=== PATIENT | female | born 1935 | race Caucasian/White ===

== ENCOUNTER 2018-11-06 05:12 | Emergency (ER) | payer MEDICARE, MEDICAID ==
[~2018-11-06] VITALS: Ht 154.9 cm; Wt 61.2 kg
[~2018-11-06 05:12] MED LIST: ALEN10TA6 PO; AMLO5TAB4 PO; DOCU-144 PO; DONE5TAB3 PO; GABA-529 PO; PREG75CA PO; SIMV10TA2 PO; ZOLP5TAB2 PO
[2018-11-06 05:15] VITALS: BP_SYST 154
[2018-11-06] MEDS ORDERED: BACLOFEN 10 MG TABLET PO ONE (05:45)
[2018-11-06] MEDS: ACETAMINOPHEN/CODEINE 300 MG-30 MG TABLET PO ONE (05:48)
[2018-11-06 08:08] VITALS: BP_SYST 154
== END 2018-11-06 08:08 | disposition home or self-care (01) ==
LOC: SED 05:12
DX: S39.012A Strain of muscle, fascia and tendon of lower back, initial encounter (principal); E78.5 Hyperlipidemia, unspecified; F03.90 Unspecified dementia, unspecified severity, without behavioral disturbance, psychotic disturbance, mood disturbance, and anxiety; I10 Essential (primary) hypertension; Z86.79 Personal history of other diseases of the circulatory system; Z79.899 Other long term (current) drug therapy; X50.9XXA Other and unspecified overexertion or strenuous movements or postures, initial encounter; Y93.89 Activity, other specified; Y92.89 Other specified places as the place of occurrence of the external cause; Y99.8 Other external cause status
CPT/HCPCS: 72125-TC; 99284

== ENCOUNTER 2019-08-10 18:30 | Emergency (ER) | payer MEDICARE, MEDICAID ==
[~2019-08-10] VITALS: Ht 154.9 cm; Wt 49.9 kg
[2019-08-10 18:30] VITALS: BP_SYST 194
[~2019-08-10 18:30] MED LIST changes: -ALEN10TA6 PO; +ALEN10TA7 PO
[2019-08-10] MEDS ORDERED: IBUPROFEN 400 MG TABLET PO ONE (19:15)
[2019-08-10] MEDS ORDERED: CYCLOBENZAPRINE HCL 10 MG TABLET (FLEXERIL) PO ONE (19:15)
[2019-08-10] MEDS ORDERED: KETOROLAC TROMETHAMINE 60 MG/2 ML VIAL IM ONE (20:00)
[2019-08-10 21:45] VITALS: BP_SYST 178
== END 2019-08-10 20:45 | disposition home or self-care (01) ==
LOC: SED 18:30
DX: S13.9XXA Sprain of joints and ligaments of unspecified parts of neck, initial encounter (principal); E78.5 Hyperlipidemia, unspecified; F03.90 Unspecified dementia, unspecified severity, without behavioral disturbance, psychotic disturbance, mood disturbance, and anxiety; I10 Essential (primary) hypertension; Z79.899 Other long term (current) drug therapy; X58.XXXA Exposure to other specified factors, initial encounter; Y93.89 Activity, other specified; Y92.89 Other specified places as the place of occurrence of the external cause; Y99.8 Other external cause status
CPT/HCPCS: 96372; 99283; J1885

== ENCOUNTER 2019-11-03 03:50 | Inpatient (IN) | payer MEDICAID, MEDICARE ==
[~2019-11-03] VITALS: Ht 157.5 cm; Wt 49.0 kg
[2019-11-03 04:18] VITALS: BP_SYST 187
[2019-11-03] MEDS ORDERED: TRAZ-250 PO (04:43)
[2019-11-03] MEDS ORDERED: CALC1POW43 PO (04:44)
[2019-11-03] MEDS ORDERED: ERGO500020 PO (04:45)
--- NOTE | 2019-11-03 04:50 | NUR ---
Patient to ER bed 3 to gown for evaluation. Side rails up.
--- NOTE | 2019-11-03 05:00 | NUR ---
Pt brought in by family, AAOX4 maltese speaking with a complaint of abdominal pain and history of alzeimers, HTN, CVA. No other complaint noted. Safety precaution observed. Will continue to monitor Pt.
--- NOTE | 2019-11-03 05:01 | NUR ---
ER at bedside examining patient.
[2019-11-03 05:42] LABS: BASOPHILS % (AUTO) 0.7 % (0.0-2.0); EOSINOPHILS % (AUTO) 0.4 % (0.0-4.0); HEMATOCRIT 45.2 % (36-48); HEMOGLOBIN 15.2 g/dL (12.0-16.0); LYMPHOCYTES # (AUTO) 0.5 K/uL (1.0-5.5); LYMPHOCYTES % (AUTO) 7.4 % (20.5-51.5); MEAN CORPUSCULAR HEMOGLOBIN 31 pg (27-31); MEAN CORPUSCULAR HGB CONC 34 % (32-36); MEAN CORPUSCULAR VOLUME 92 fL (79.0-98.0); MONOCYTES # (AUTO) 0.4 K/uL (0.0-1.0); MONOCYTES % (AUTO) 5.3 % (1.7-9.3); NEUTROPHILS # (AUTO) 5.8 K/uL (1.8-7.7); NEUTROPHILS % (AUTO) 86.2 % (40.0-70.0); PLATELET COUNT (AUTO) 145 K/uL (130-430); RED BLOOD CELL COUNT(AUTO) 4.92 MIL/uL (4.2-6.2); RED CELL DISTRIBUTION WIDTH 14.2 % (9.0-15.0); WHITE BLOOD COUNT (AUTO) 6.7 K/uL (4.8-10.8)
[2019-11-03] MEDS ORDERED: MORPHINE 2 MG/ML INJ. SYRINGE IVP ONE (05:45)
[2019-11-03] MEDS ORDERED: ONDANSETRON HCL 4 MG/2 ML VIAL IVP ONE ×2 (05:45→16:15)
[2019-11-03 05:58] LABS: ANION GAP 13 (5-15); CALCIUM 8.4 mg/dL (8.4-11.0); CHLORIDE 101 mmol/L (98-107); CREATININE 0.72 mg/dL (0.55-1.30); GLUCOSE 117 mg/dL (70-99); POTASSIUM 3.4 mmol/L (3.5-5.1); SODIUM SERUM 136 mmol/L (136-145); UREA NITROGEN, BLOOD 17 mg/dL (8-21)
[2019-11-03 06:04] LABS: ALANINE AMINOTRANSFERASE 15 U/L (12-78); ALBUMIN 4.1 g/dL (3.4-4.8); ASPARTATE AMINOTRANSFERASE 18 U/L (10-37); TOTAL BILIRUBIN 0.8 mg/dL (0.0-1.0)
[2019-11-03] MEDS ORDERED: metroNIDAZOLE 500 mg/NS 100 ML IV ONE (06:15)
--- NOTE | 2019-11-03 06:32 | NUR ---
Admission Note Received patient from ER with diagnosis of SBO. Initial Plan of Care discussed-patient verbalized understanding. Oriented to room, call light, pain management and safety.
[2019-11-03 06:40] LABS: PROTHROMBIN TIME 9.9 SECS (9.5-12.5)
--- NOTE | 2019-11-03 06:40 | NUR ---
Patient will be admitted to care of Dr. Coleman. Admitted to telemetry unit. Will go to room 124. Belongings list completed. Complete and up to date summary report printed. SBAR report to be given at bedside with opportunity for questions.
[2019-11-03] MEDS ORDERED: ONDANSETRON HCL 4 MG/2 ML VIAL IVP PRN ×2 (06:45→17:15)
[2019-11-03 06:49] VITALS: BP_SYST 151
--- NOTE | 2019-11-03 07:30 | NUR ---
INITIAL NOTE PT AWAKE, ASSISTED TO RESTROOM, PT AMBULATES WITH STEADY GAIT. DENIES ANY ABDOMINAL PAIN, OR NAUSEA. ASSISTED BACK TO BED. CALL LIGHT WITHIN REACH, BED IN LOW AND LOCKED POSITION WITH BED ALARM ON.
--- NOTE | 2019-11-03 07:47 | NUR ---
CONSULTATION PAGED/CALLED Reason for Consultation: [] SMALL BOWEL OBSTRUCTION Person Who was Notified: [] HUMZA Consulting Physician: [] DR BARRAGAN Food Tester Specialty: [] GEN SURGEON Ordering Physician: [] DR CORONA
[2019-11-03] MEDS: MORPHINE 2 MG/ML INJ. SYRINGE IVP PRN ×2 (08:53→19:22)
--- NOTE | 2019-11-03 09:30 | NUR ---
RN ROUNDS/DR. LUIS MANUEL ELIZABETH AT BEDSIDE EXAMINING PT. PT AWAKE, ABLE TO ANSWER MD QUESTIONS. MD TO PUT NEW ORDERS.
[2019-11-03] MEDS ORDERED: PIPERACILLIN/TAZO 2.25G/DEX-IS 50 ML IV ONE (11:00)
--- NOTE | 2019-11-03 11:14 | NUR ---
CONSULTATION PAGED/CALLED Reason for Consultation: [] CARDIAC CLEARANCE Person Who was Notified: [] EVA Consulting Physician: [] DR FREEMAN Granular Operator Specialty: [] CARDIOLOGY Ordering Physician: [] DR CORONA
--- NOTE | 2019-11-03 11:18 | NUR ---
CONSULTATION PAGED/CALLED Reason for Consultation: [] ABDOMINAL PAIN Person Who was Notified: [] HUMZA Consulting Physician: [] DR ISSA, PASSENGER SCREENER FOR DR APONTE Forestry Fire Aide Specialty: [] GI Ordering Physician: [] DR CORONA
[2019-11-03] MEDS: D5LR 1,000 ML IV SCH ×2 (11:23→20:00)
[2019-11-03] MEDS ORDERED: POTASSIUM CHLORIDE 40 MEQ, LIDOCAINE JECT 2% PF 100 MG 50 MG in NS 250 ML IV ONE (11:30)
--- NOTE | 2019-11-03 11:30 | NUR ---
DR. LUIS MANUEL ELIZABETH AT BEDSIDE EXAMINING PT. TO PUT IN NEW ORDERS.
--- NOTE | 2019-11-03 11:30 | NUR ---
RN ROUNDS PT RESTING IN BED, PAIN CONTROLLED AT THIS TIME, WILL CONTINUE TO MONITOR.
[2019-11-03 12:09] VITALS: BP_SYST 142
[2019-11-03] MEDS ORDERED: POLYETHYLENE GLYCOL 3350, 17 GM/ POWD.PACK PO ONE (12:30)
--- NOTE | 2019-11-03 13:30 | NUR ---
RN KERWIN/DR. CHLOE ELIZABETH AT BED SIDE EXAMINING PT. PT ABLE TO ANSWER ALL MD QUESTION. MD TO PUT IN NEW ORDERS.
--- NOTE | 2019-11-03 14:40 | NUR ---
DR. LAUREL ELIZABETH AT BEDSIDE EXAMINING PT. TO PUT IN NEW ORDERS. CONSENT FOR SURGERY SIGNED BY SON AT BEDSIDE.
--- NOTE | 2019-11-03 16:09 | NUR ---
CARDIOLOGY CONSULT, DR SU[facility] IS CANCELLED. SPOKE TO EVA.
[2019-11-03] MEDS ORDERED: ROCURONIUM BROMIDE 10 MG/ML (ZEMURON) IV ONE (16:15)
[2019-11-03] MEDS ORDERED: NS IRRIG SOLN 1000 ML IR ONE (16:15)
[2019-11-03] MEDS ORDERED: MIDAZOLAM HCL 5 MG/5 ML VIAL IVP ONE (16:15)
[2019-11-03] MEDS ORDERED: SEVOFLURANE 15 MIN GAS INH ONE (16:15)
[2019-11-03] MEDS ORDERED: NS 1000 ML IV.SOLN IV ONE (16:15)
[2019-11-03] MEDS ORDERED: BUPIVACAINE /EPINEPHRINE/PF 0.5% 30 ML VIAL INJ ONE (16:15)
[2019-11-03] MEDS ORDERED: LR 1,000 ML IV.SOLN IV ONE (16:15)
[2019-11-03] MEDS ORDERED: fentaNYL CITRATE 250 MCG/5 ML AMP IV ONE (16:15)
[2019-11-03] MEDS ORDERED: SUGAMMADEX SODIUM 200 MG/2 ML VIAL IV ONE (16:15)
--- NOTE | 2019-11-03 16:15 | NUR ---
LEFT TO OR PT TAKEN VIA GURNEY, PAIN CONTROLLED AT THIS TIME, CHART WITH OR NURSE.
[2019-11-03 16:41] VITALS: BP_SYST 151
[2019-11-03] MEDS: NACL 0.9% 1,000 ML IV SCH (17:02)
[2019-11-03] MEDS ORDERED: LR 1,000 ML IV SCH (17:09)
[2019-11-03] MEDS ORDERED: METOCLOPRAMIDE HCL 10 MG/2 ML VIAL IVP PRN (17:15)
[2019-11-03] MEDS ORDERED: HYDROmorphone 1 MG INJ. 1 MG/ML AMPUL IVP PRN (17:15)
[2019-11-03] MEDS ORDERED: MORPHINE 4 MG/ML INJ. SYRINGE IVP PRN ×3 (17:15)
[2019-11-03] MEDS ORDERED: MORPHINE 4 MG/ML INJ. SYRINGE ONE (18:09)
--- NOTE | 2019-11-03 18:11 | NUR ---
RETURNED FROM OR PT AWAKE, PAIN CONTROLLED AT THIS TIME. PT BROUGHT VIA GURNEY ACCOMPANIED BY OR NURSE.
--- NOTE | 2019-11-03 18:20 | NUR ---
BACK FROM OR/PAGED MD BP ELEVATED 194/92 HR 62, DENIES ANY DIZZINESS. SPOKE WITH DR. CORONA, NEW ORDERS RECEIVED VERIFIED WITH TELEPHONE READ BACK.
--- NOTE | 2019-11-03 18:44 | NUR ---
ATTENDING MD DR CORONA WAS CALLED, RE: HIGH BP. SPOKE TO [place].
[2019-11-03] MEDS ORDERED: hydrALAZINE HCL 20 MG/ML VIAL IVP PRN (18:45)
[2019-11-03] MEDS: PIPERACILLIN/TAZO 2.25G/DEX-IS 50 ML IV SCH (18:58)
--- NOTE | 2019-11-03 19:39 | NUR ---
PAGED PAGED DOCTOR CORBI FOR ORDERS
[2019-11-03 19:45] VITALS: BP_SYST 150
--- NOTE | 2019-11-03 19:53 | NUR ---
CLOSING NOTE/DR. BARRAGAN ASSISTED PT ON TO BED MELENDREZ. PAIN CONTROLLED AT THIS TIME. IVF INFUSING WELL. CALL LIGHT WITHIN REACH, BED IN LOW AND LOCKED POSITION WITH BED ALARM ON. SPOKE WITH DR. ROBLES VIA PHONE, PT TO REMAIN NPO, SPOKE WITH RENETTA BENITEZ VIA PHONE.
[2019-11-03] MEDS ORDERED: DEXTROSE 50% JECT 50 ML DISP.SYRIN IVP PRN (20:00)
[2019-11-03] MEDS ORDERED: *PPN PER PHARMACY XX PRN (20:00)
[2019-11-03] MEDS ORDERED: INSULIN REGULAR, HUMAN 100 UNITS/ML, 10 ML VIAL (humuLIN R) SUBCUT PRN (20:00)
--- NOTE | 2019-11-03 20:00 | NUR ---
Opening notes Pt alert, awake, no s/s distress noted. Pt medicated for pain per dayshift RN. Abd dressings x2 C/D/I. IVF infusing at ordered rate L. hand 20G no s/s infiltration noted. Call light within easy reach. Pt's son at bedside. Bed low, locked, siderails up, alarm on. To monitor.
[2019-11-03] MEDS: metroNIDAZOLE 500 mg/NS 100 ML IV SCH (20:09)
[2019-11-03] MEDS: CEFAZOLIN 2 GM IVPB PREMIX 50 ML IV SCH (21:23)
--- NOTE | 2019-11-03 22:59 | NUR ---
INCENTIVE SPIROMETER Educated pt on I.S. use 10x per hour while awake. Pt demonstrated understanding 750ml. Pt tolerated well. To monitor.
[2019-11-03 23:20] VITALS: BP_SYST 153
[2019-11-04] MEDS: PIPERACILLIN/TAZO 2.25G/DEX-IS 50 ML IV SCH ×4 (00:02→17:08)
--- NOTE | 2019-11-04 00:20 | NUR ---
Rounds Pt awake, no s/s distress noted, no c/o pain. VSS, afebrile. IVF infusing at ordered rate L. hand 20g no s/s infiltration noted. Abd incision dressings x2 C/D/I. Abd binder placed. Pt repositioned. Bed low, locked, siderails up, alarm on. To monitor.
[2019-11-04] MEDS: metroNIDAZOLE 500 mg/NS 100 ML IV SCH (02:44)
[2019-11-04] MEDS: NACL 0.9% 1,000 ML IV SCH ×2 (02:46→16:54)
--- NOTE | 2019-11-04 04:04 | NUR ---
Pt moved to Rm 121-A. Pt awake, confused, got out of bed and walked to the station and pulled out her IV per CRN. Safety maintained. All belongings with pt.
--- NOTE | 2019-11-04 04:25 | NUR ---
IV restart IV restarted R. Forearm 20G via aseptic technique. Good blood return. Pt tolerated well.
[2019-11-04] MEDS: CEFAZOLIN 2 GM IVPB PREMIX 50 ML IV SCH (04:30)
--- NOTE | 2019-11-04 05:40 | NUR ---
Bathroom Pt awake, assisted pt to walk to bathroom. Pt voided 350ml clear yellow urine. UA collected and sent to lab. Safety maintained. Bed low, locked, siderails up, alarm on. To lilo.
[2019-11-04 06:22] LABS: BILIRUBIN,URINE NEGATIVE (NEGATIVE); BLOOD, URINE NEGATIVE (NEGATIVE); CLARITY/URINE CLEAR (CLEAR); COLOR,URINE YELLOW (YELLOW); GLUCOSE,URINE NEGATIVE (NEGATIVE); KETONES,URINE NEGATIVE (NEGATIVE); LEUKOCYTE ESTERASE ,URINE 1+ (NEGATIVE); NITRITE, URINE NEGATIVE (NEGATIVE); PROTEIN URINE NEGATIVE (NEGATIVE); UROBILINOGEN,URINE 0.2 (0.2-1.0)
--- NOTE | 2019-11-04 06:27 | NUR ---
Closing notes Pt asleep, easily arousable. No s/s distress noted. BS checked 144, no insulin per ss protocol. IV antibiotic administered R. FA20G no s/s infiltration. Abd binder on at all times. Abd dressing x2 C/D/I. Bed low, locked, siderails up. Call light within reach. To endorse to AM nurse.
[2019-11-04 06:28] LABS: BACTERIA,URINE FEW /HPF (None Seen); RBC,URINE 0-3 /HPF (0-3)
[2019-11-04 06:34] LABS: ALANINE AMINOTRANSFERASE 97 U/L (12-78); ALBUMIN 3.3 g/dL (3.4-4.8); ANION GAP 11 (5-15); ASPARTATE AMINOTRANSFERASE 89 U/L (10-37); CALCIUM 8.5 mg/dL (8.4-11.0); CHLORIDE 104 mmol/L (98-107); CREATININE 1.07 mg/dL (0.55-1.30); FREE T4 (FREE THYROXINE) 1.3 ng/dl (0.8-1.5); GLUCOSE 146 mg/dL (70-99); LIPASE 53 U/L (73-393); PHOSPHORUS 3.1 mg/dL (2.7-4.5); POTASSIUM 3.5 mmol/L (3.5-5.1); SODIUM SERUM 139 mmol/L (136-145); TOTAL BILIRUBIN 0.8 mg/dL (0.0-1.0); UREA NITROGEN, BLOOD 12 mg/dL (8-21)
[2019-11-04 06:36] LABS: HEMATOCRIT 42.4 % (36-48); HEMOGLOBIN 14.1 g/dL (12.0-16.0); LYMPHOCYTES # (AUTO) 0.3 K/uL (1.0-5.5); LYMPHOCYTES % (AUTO) 1.8 % (20.5-51.5); MEAN CORPUSCULAR HEMOGLOBIN 31 pg (27-31); MEAN CORPUSCULAR HGB CONC 33 % (32-36); MEAN CORPUSCULAR VOLUME 93 fL (79.0-98.0); MONOCYTES # (AUTO) 0.7 K/uL (0.0-1.0); MONOCYTES % (AUTO) 4.7 % (1.7-9.3); NEUTROPHILS # (AUTO) 13.3 K/uL (1.8-7.7); NEUTROPHILS % (AUTO) 93.5 % (40.0-70.0); PLATELET COUNT (AUTO) 144 K/uL (130-430); RED BLOOD CELL COUNT(AUTO) 4.57 MIL/uL (4.2-6.2); RED CELL DISTRIBUTION WIDTH 14.3 % (9.0-15.0); WHITE BLOOD COUNT (AUTO) 14.2 K/uL (4.8-10.8)
--- NOTE | 2019-11-04 07:02 | NUR ---
Nutrition Update Stephen Scale 15 noted. Pt admitted for Small Bowel Obstruction Diet: NPO BMI: 19.8 kg/m2 RD to follow per nutrition care standards.
[2019-11-04 07:05] LABS: CHOLESTEROL 139 mg/dL (<200); HDL CHOLESTEROL 78 mg/dL (>55); LDL CHOLESTEROL 56 mg/dL (<100); TRIGLYCERIDES 40 mg/dL (30-150)
[2019-11-04 08:08] VITALS: BP_SYST 148
--- NOTE | 2019-11-04 08:19 | NUR ---
Verified Orders: Spoke with Dr. Coleman and verified orders cancelled Hida Scan.Called nuclear medicine and informed Reggie Reid to cancell the order per MD.
[2019-11-04] MEDS: POLYETHYLENE GLYCOL 3350, 17 GM/ POWD.PACK PO SCH (09:00)
--- NOTE | 2019-11-04 11:35 | NUR ---
Dietitian Recommendations *Recommend continuing NPO per MD orders. *Recommend D20% AA 8.5% at 55ml/hr (goal rate), IL20% at 5ml/hr via Peripheral line. Provides: 913 kcal, 56 gm protein, 1440ml free water and GIR 1.9gm CHO/kg/min. Meets: 84% of est calorie needs and 83% of upper end of est protein needs. RD s/w pharmD Richie earlier this morning (1017). Please see Nutritional Assessment for details. GERTRUDIS ULLOA
--- NOTE | 2019-11-04 11:48 | NUR ---
BLOOD SUGAR: BLOOD SUGAR TAKEN,NO INSULIN NEEDED PER SLIDING SCALE.
--- NOTE | 2019-11-04 12:33 | NUR ---
PERSONAL BELONGINGS HOME: PATIENT'S SON EMMANUEL TOOK HER [employer] HOME AND CLOTHES EXCEPT BEDROOM SLIPPERS.
[2019-11-04 12:52] VITALS: BP_SYST 155
--- NOTE | 2019-11-04 14:20 | NUR ---
BRP WITH ASSIST: ASSISTED PATIENT TO THE TOILET.VOIDED.PASSED GAS.THEN ASSISTED BACK TO HER BED. STABLE.
--- NOTE | 2019-11-04 16:02 | NUR ---
MD ROUNDS: PATIENT SEEN BY DR CORONA AND MAY HAVE ICE CHIPS AND SMALL SIPS OF WATER.NO NEED FOR DULCOLAX SUPP PER MD,PT PASSED GAS ALREADY.
[2019-11-04 16:23] VITALS: BP_SYST 153
--- NOTE | 2019-11-04 16:41 | NUR ---
RIGHT GROIN DRESSING CHANGE: SWAB WITH BETADINE PER SURGEON,AND COVERED WITH DRESSING.
--- NOTE | 2019-11-04 17:10 | NUR ---
Blood Sugar: Blood sugar taken ,no insulin coverage needed per sliding scale.
--- NOTE | 2019-11-04 18:32 | NUR ---
CLOSING NOTES: ASSISTED PATIENT TO THE TOILET.VOIDED. THEN BACK TO HER BED.DENIES ANY PAIN. NOT BANDAR [place] DISTRESS.
[2019-11-04 20:15] VITALS: BP_SYST 158
--- NOTE | 2019-11-04 20:30 | NUR ---
Spoke to pt's nephew at bedside regarding HIDA Scan for tomorrow. Per nephew he spoke with pt's son Rajan and he will come in AM to sign consent. Also left msg to Rajan's phone to call us back.
[2019-11-04 20:34] VITALS: BP_SYST 153
[2019-11-04] MEDS ORDERED: FAT EMULSIONS 250 ML IV SCH (21:00)
[2019-11-04] MEDS ORDERED: TPN PERIPHERAL 0.0001 ML, SODIUM ACETATE 40 MEQ, POTASSIUM CHLORIDE 20 MEQ, K PHOS 9 MM... IV SCH ×10 (21:00)
--- NOTE | 2019-11-04 21:25 | NUR ---
Transfer of care Report given to Donna KRAUSE for continuation of care.
--- NOTE | 2019-11-04 22:00 | NUR ---
PT RECIEVED AWAKE ALERT AND ORIENTED X3 . PT IS BAHRAINI SPEAKING ONLY .VITAL SIGN STABLE . PT ON SINUS RYTHM . PT STARTED ON PPN AND LIPID . PPN AT 40CC/HR LIPID AT 5CC/HT . SKIN INTACT . WILL CONTINUE TO MONITOR PT .
[2019-11-05] VITALS: BP_SYST 152
--- NOTE | 2019-11-05 | NUR ---
pt on sinus rythm . pt given a bed gurrola. ppn and lipid infusing well. pt monitored for arrthymia .
[2019-11-05] MEDS: PIPERACILLIN/TAZO 2.25G/DEX-IS 50 ML IV SCH ×4 (00:32→18:34)
[2019-11-05] MEDS ORDERED: OXCA150T5 PO (01:20)
[2019-11-05] MEDS ORDERED: ESCI10TA PO (01:20)
[2019-11-05] MEDS: NACL 0.9% 1,000 ML IV SCH ×3 (01:39→21:44)
--- NOTE | 2019-11-05 05:00 | NUR ---
PT AWAKE . SINUS RYTHM . PT INSTRUCTED TO ASK FOR BEDPAN . PT ON SINUS RYTHM . WILL CONTINUE TO MONITOR PT,S PPN AND LIPID. NS CONTINUE AT 50CC/HR.
[2019-11-05 06:56] LABS: ANION GAP 7 (5-15); CALCIUM 7.9 mg/dL (8.4-11.0); CHLORIDE 105 mmol/L (98-107); CREATININE 0.69 mg/dL (0.55-1.30); GLUCOSE 137 mg/dL (70-99); PHOSPHORUS 2.2 mg/dL (2.7-4.5); SODIUM SERUM 137 mmol/L (136-145); UREA NITROGEN, BLOOD 12 mg/dL (8-21)
[2019-11-05 06:58] LABS: BASOPHILS % (AUTO) 0.2 % (0.0-2.0); EOSINOPHILS % (AUTO) 0.1 % (0.0-4.0); HEMATOCRIT 37.6 % (36-48); HEMOGLOBIN 12.6 g/dL (12.0-16.0); LYMPHOCYTES # (AUTO) 0.5 K/uL (1.0-5.5); LYMPHOCYTES % (AUTO) 4.4 % (20.5-51.5); MEAN CORPUSCULAR HEMOGLOBIN 31 pg (27-31); MEAN CORPUSCULAR HGB CONC 34 % (32-36); MEAN CORPUSCULAR VOLUME 93 fL (79.0-98.0); MONOCYTES # (AUTO) 0.7 K/uL (0.0-1.0); MONOCYTES % (AUTO) 6.3 % (1.7-9.3); NEUTROPHILS # (AUTO) 9.4 K/uL (1.8-7.7); PLATELET COUNT (AUTO) 102 K/uL (130-430); RED BLOOD CELL COUNT(AUTO) 4.05 MIL/uL (4.2-6.2); RED CELL DISTRIBUTION WIDTH 14.2 % (9.0-15.0)
[2019-11-05 07:09] LABS: POTASSIUM 2.9 mmol/L (3.5-5.1)
[2019-11-05] MEDS ORDERED: POTASSIUM CHLORIDE 40 MEQ in NS 250 ML IV ONE (07:30)
[2019-11-05] MEDS: POLYETHYLENE GLYCOL 3350, 17 GM/ POWD.PACK PO SCH (07:32)
[2019-11-05 07:34] LABS: WHITE BLOOD COUNT (AUTO) 10.6 K/uL (4.8-10.8)
[2019-11-05 08:00] VITALS: BP_SYST 155
--- NOTE | 2019-11-05 10:15 | NUR ---
Mobility/gi Patient ambulate to bathroom with assist tolerates well no dizziness minimal pain in the incision tolerates well , had a bowel movement hard stool passing gas , perineal care given .
--- NOTE | 2019-11-05 11:40 | NUR ---
IV RE-INSERTION: Complaining of pain to IV site. Restarted on left hand g22. Successful after 2 attempts. Resumed current IVF . Will observe for any signs of infiltration.
--- NOTE | 2019-11-05 11:48 | NUR ---
To nuclear dept, for HIDA scan with consent taken,given by the son after explanation of indication.
[2019-11-05 12:53] VITALS: BP_SYST 150
[2019-11-05] MEDS ORDERED: NAPH,MB-DB/K PH,MBDB 250 MG TAB PO ONE (14:15)
[2019-11-05] MEDS ORDERED: POTASSIUM CHLORIDE 20 MEQ TAB.PRT.SR PO ONE (14:15)
[2019-11-05 16:32] VITALS: BP_SYST 117
--- NOTE | 2019-11-05 18:16 | NUR ---
Bowel sound positive served clear liquid diet tolerates well with out nausea/vomiting, able to ambulate to bathroom with steady gait minimal pain tolerable, safety/fall precaution initiated.
[2019-11-05] MEDS: NAPH,MB-DB/K PH,MBDB 250 MG TAB PO SCH (18:34)
[2019-11-05 20:00] VITALS: BP_SYST 144
[2019-11-05] MEDS ORDERED: TPN PERIPHERAL IV SCH ×10 (21:00)
[2019-11-05] MEDS ORDERED: SODIUM ACETATE IV SCH ×10 (21:00)
[2019-11-05] MEDS ORDERED: [UNRECOGNIZED DRUG - OTHER] IV SCH ×10 (21:00)
[2019-11-05] MEDS ORDERED: POTASSIUM CHLORIDE IV SCH ×10 (21:00)
--- NOTE | 2019-11-05 21:35 | NUR ---
PT RECIEVED AWAKE ALERT And oriented x3 . skin warmand intact . pt skin intact and dry .pt does not talk . vital stable pt on glucerna at 50cc/hr .pt on iv 1/2ns at 80cc/hr . pt have a kamara cath .pt have midline la intact . pt turned and repositioned. pt on sinus tachycardia . feeding have no residual . will continue to monitor pt .
[2019-11-05] MEDS: POTASSIUM CHLORIDE 20 MEQ TAB.PRT.SR PO SCH (21:57)
[2019-11-06] VITALS: BP_SYST 145
--- NOTE | 2019-11-06 05:00 | NUR ---
PT AWAKE NOW BLOOD SUGAR 104. MORNING ANTIBOITICS GIVEN . PT MONITORED .WILL CONTINUE TO MONITOR PT , IV PATENT .
[2019-11-06] MEDS: PIPERACILLIN/TAZO 2.25G/DEX-IS 50 ML IV SCH ×4 (06:16→17:34)
[2019-11-06 07:36] LABS: ANION GAP 8 (5-15); CHLORIDE 106 mmol/L (98-107); CREATININE 0.56 mg/dL (0.55-1.30); GLUCOSE 110 mg/dL (70-99); PHOSPHORUS 2.2 mg/dL (2.7-4.5); POTASSIUM 3.1 mmol/L (3.5-5.1); SODIUM SERUM 139 mmol/L (136-145); UREA NITROGEN, BLOOD 10 mg/dL (8-21)
[2019-11-06 08:00] VITALS: BP_SYST 149
[2019-11-06] MEDS: POTASSIUM CHLORIDE 20 MEQ TAB.PRT.SR PO SCH (08:33)
[2019-11-06] MEDS: POLYETHYLENE GLYCOL 3350, 17 GM/ POWD.PACK PO SCH (08:33)
[2019-11-06] MEDS: NAPH,MB-DB/K PH,MBDB 250 MG TAB PO SCH ×3 (08:33→17:34)
[2019-11-06] MEDS: NACL 0.9% 1,000 ML IV SCH (11:28)
--- NOTE | 2019-11-06 11:45 | NUR ---
Incision care Seen and examined by Dr. Coleman dressing removed , abdominal incision with 2 lisy , no redness no drainage ,dry dressing done covered with OpSite., Right inguinal incision with 6 lisy dressing with serous drainage small amount, periwound mild discoloration, cleanse with saline pat/dry ,dry dressing applied covered by dry gauze then OpSite.; patient and son instructed not too scratch the incision, per Dr. Coleman to removed abdominal binder, coz its causing pressure to inguinal incision , not heavy weight bearing , no pushing verbalized understanding.
[2019-11-06 12:31] VITALS: BP_SYST 149
--- NOTE | 2019-11-06 13:00 | NUR ---
Patient tolerates soft diet 75% no abdominal pain no nausea.
--- NOTE | 2019-11-06 14:33 | NUR ---
GI Patient ambulate to bathroom had a bowel movement large amount brown color, perineal care given.
[2019-11-06 16:25] VITALS: BP_SYST 131
[2019-11-06 16:43] VITALS: BP_SYST 131
--- NOTE | 2019-11-06 18:07 | NUR ---
Tolerates dinner well denies any abdominal pain, Dr. Coleman informed Ok to discharge patient home today . home health to be arrange in am by the oil field caser.
--- NOTE | 2019-11-06 18:46 | NUR ---
D/C Patient Patient given medication reconciliation form and D/C instructions. Exit Care provided. Patient kajal Tolentino verbalized understanding. MD discussed with patient the results and treatment provided. Ambulatory with steady gait for discharge to home. Patient in stable condition, ID band removed. IV catheter removed, intact and dressing applied, no active bleeding. Patient educated on incision care management. All belongings sent with patient.
--- NOTE | 2019-11-06 18:51 | NUR ---
Discharge patient home today accompanied by the son with all the belongings taken.
--- NOTE | 2019-11-07 12:40 | NUR ---
HH arrangement after pt discharged home: informed Betty, after hour tel # [phone] the need to have HH set up after pt was dc home yesterday. Betty advice to fax the dc package to [facility] then [facility] will contact the pt and arrange HH needs. CM faxed the dc order and clinical package, including FS and order to [facility] at [facility] # [phone]. >> Informed pt and her son/Rajan at home # [phone] of the HH arrangement by [facility]. The contact number was provided as well. Son stated he will f/u with [facility] as needed.
== END 2019-11-06 18:51 | disposition home health service (06) | DRG 230 ==
LOC: SED 03:50 → STU 06:37 → SMU 11-05 13:50
PROVIDERS: ADMIT Internal Medicine; ATTEND Internal Medicine
PROC: 0YQ50ZZ Repair Right Inguinal Region, Open Approach (ICD-10-PCS; 2019-11-03)
PROC: 0DB80ZZ Excision of Small Intestine, Open Approach (ICD-10-PCS; principal; 2019-11-03 16:10)
DX: K40.30 Unilateral inguinal hernia, with obstruction, without gangrene, not specified as recurrent (principal); K55.069 Acute infarction of intestine, part and extent unspecified; R40.2223 Coma scale, best verbal response, incomprehensible words, at hospital admission; G30.9 Alzheimer's disease, unspecified; F02.80 Dementia in other diseases classified elsewhere, unspecified severity, without behavioral disturbance, psychotic disturbance, mood disturbance, and anxiety; K82.8 Other specified diseases of gallbladder; E78.5 Hyperlipidemia, unspecified; I10 Essential (primary) hypertension; E87.6 Hypokalemia; Z79.899 Other long term (current) drug therapy; R40.2423 Glasgow coma scale score 9-12, at hospital admission
CPT/HCPCS: 36415; 71045; 76700-TC; 78226; 80048; 80053; 80061; 81000-TC; 82962; 83605; 83690-TC; 83735-TC; 84100-TC; 84439; 84484; 85025; 85610-TC; 85730-TC; 87040-TC; 87081; 88302; 88305; 88307; 88341; 88342; 93005; 93306; 96374; 96375; 99285; A9537; C1727; C9399; G0378; J0360; J0610; J0690; J1815; J2250; J2270; J2405; J2543; J2765; J3010; J3475; J3480; J3490; J7030; J7040; J7050; J7120

== ENCOUNTER 2019-11-10 09:43 | Emergency (ER) | payer MEDICARE, MEDICAID ==
[~2019-11-10] VITALS: Ht 139.7 cm; Wt 53.1 kg
[~2019-11-10 09:43] MED LIST changes: -ALEN10TA7 PO; +CALC1POW43 PO; -DOCU-144 PO; -DONE5TAB3 PO; +ERGO500020 PO; +ESCI10TA PO; -GABA-529 PO; +OXCA150T5 PO; -PREG75CA PO; +TRAZ-250 PO
[2019-11-10 09:49] VITALS: BP_SYST 149
--- NOTE | 2019-11-10 09:53 | NUR ---
Patient triaged and placed in waiting room. VSS and patient appears in no acute distress at this time. Accompanied by SON, awaiting available bed, and MD notified of need for MSE.
--- NOTE | 2019-11-10 13:38 | NUR ---
Pt placed in bed 2
--- NOTE | 2019-11-10 13:40 | NUR ---
Pt came to ER for RLE swelling, no redness or pain. Pt resting in bed, placed on laboratory monitor, comfortable
[2019-11-10] MEDS ORDERED: NACL 0.9% 1,000 ML IV ONE ×2 (13:49→19:15)
--- NOTE | 2019-11-10 13:50 | NUR ---
ER at bedside examining patient.
[2019-11-10 14:46] LABS: BASOPHILS % (AUTO) 0.4 % (0.0-2.0); EOSINOPHILS # (AUTO) 0.2 K/uL (0.0-0.4); EOSINOPHILS % (AUTO) 2.1 % (0.0-4.0); HEMATOCRIT 38.7 % (36-48); HEMOGLOBIN 12.9 g/dL (12.0-16.0); LYMPHOCYTES # (AUTO) 0.5 K/uL (1.0-5.5); MEAN CORPUSCULAR HEMOGLOBIN 31 pg (27-31); MEAN CORPUSCULAR HGB CONC 33 % (32-36); MEAN CORPUSCULAR VOLUME 93 fL (79.0-98.0); MONOCYTES # (AUTO) 0.7 K/uL (0.0-1.0); MONOCYTES % (AUTO) 8.5 % (1.7-9.3); NEUTROPHILS # (AUTO) 6.4 K/uL (1.8-7.7); PLATELET COUNT (AUTO) 162 K/uL (130-430); RED BLOOD CELL COUNT(AUTO) 4.16 MIL/uL (4.2-6.2); RED CELL DISTRIBUTION WIDTH 14.4 % (9.0-15.0); WHITE BLOOD COUNT (AUTO) 7.7 K/uL (4.8-10.8)
[2019-11-10 14:56] LABS: BILIRUBIN,URINE NEGATIVE (NEGATIVE); BLOOD, URINE NEGATIVE (NEGATIVE); CLARITY/URINE CLEAR (CLEAR); COLOR,URINE YELLOW (YELLOW); GLUCOSE,URINE NEGATIVE (NEGATIVE); KETONES,URINE NEGATIVE (NEGATIVE); LEUKOCYTE ESTERASE ,URINE NEGATIVE (NEGATIVE); NITRITE, URINE NEGATIVE (NEGATIVE); PROTEIN URINE NEGATIVE (NEGATIVE); UROBILINOGEN,URINE 0.2 (0.2-1.0)
[2019-11-10 14:56] LABS: INR 0.9 (0.8-1.2); PROTHROMBIN TIME 9.1 SECS (9.5-12.5)
[2019-11-10 15:05] LABS: ANION GAP 7 (5-15); CALCIUM 8.2 mg/dL (8.4-11.0); CHLORIDE 105 mmol/L (98-107); CREATININE 0.82 mg/dL (0.55-1.30); GLUCOSE 77 mg/dL (70-99); POTASSIUM 3.6 mmol/L (3.5-5.1); SODIUM SERUM 141 mmol/L (136-145); UREA NITROGEN, BLOOD 17 mg/dL (8-21)
[2019-11-10 15:09] LABS: ALANINE AMINOTRANSFERASE 50 U/L (12-78); ALBUMIN 2.7 g/dL (3.4-4.8); AMYLASE 87 U/L (0-100); ASPARTATE AMINOTRANSFERASE 27 U/L (10-37); LIPASE 236 U/L (73-393); TOTAL BILIRUBIN 0.4 mg/dL (0.0-1.0)
--- NOTE | 2019-11-10 16:42 | NUR ---
unable to verify meds at this time, family to bring medication at later time
[2019-11-10] MEDS ORDERED: cloNIDine HCL 0.1 MG TABLET PO ONE (17:15)
[2019-11-10] MEDS ORDERED: HEPARIN 25,000 UNITS/D5W 250ML 250 ML IV ONE ×2 (17:30→18:15)
[2019-11-10] MEDS ORDERED: *HEPARIN PER PHARMACY XX ONE (18:00)
--- NOTE | 2019-11-10 18:40 | NUR ---
Hermila doll in EDM - 11/10/19 at 1841 by MARIANN [facility] 1 to transport to [facility] via ALS. ETA 60-60 minutes.
--- NOTE | 2019-11-10 18:40 | NUR ---
[facility] 1 to transport to [facility] via ALS. ETA 60-90 minutes.
[2019-11-10] MEDS ORDERED: HEPARIN SODIUM,PORCINE 5000 UNITS/ML VIAL IVP ONE (18:45)
--- NOTE | 2019-11-10 18:57 | NUR ---
Report called in to Blanca RN at . Patient to goto room 426B in [facility].
--- NOTE | 2019-11-10 19:06 | NUR ---
Called patient's son, Rajan, at and updated him on patient transfer to [facility].
--- NOTE | 2019-11-10 19:12 | NUR ---
Report given to JIMI Lucio for continuation of care.
--- NOTE | 2019-11-10 19:15 | NUR ---
ASSUMED CARE. RECEIVED ALERT,ORIENTED. AFEBRILE, NOT IN ACUTE DISTRESS. NO PAIN OR DISCOMFORT NOTED. BP=91/48. ER-MD NOTIFIED. PT.FOR TRANSFER TO [facility]. AWAITING DRAIN CLEANER. AM SHIFT RN GAVE REPORT. WILL CLOSELY MONITOR.
--- NOTE | 2019-11-10 19:20 | NUR ---
ANOTHER IV LINE GAUGE 20 ESTABLISHED TO THE RIGHT WRIST.
--- NOTE | 2019-11-10 19:35 | NUR ---
NS 1 LITER BOLUS GIVEN ORDERED.
--- NOTE | 2019-11-10 20:25 | NUR ---
STILL WAITING FOR [employer] WELL[employer] SALES CONSULTANT. BP BETTER 116/47.
--- NOTE | 2019-11-10 20:48 | NUR ---
[facility] HERE TO ACCOUNTING INTERN PT. REPORT GIVEN TO [facility] TRANSPORT NURSE WILLIE KRAUSE.
--- NOTE | 2019-11-10 21:02 | NUR ---
COPY OF PATIENT'S CHART GIVEN TO [facility] EMT'S. LEFT UNIT VIA SUSANNA GOFF.
[2019-11-10 21:36] VITALS: BP_SYST 113
== END 2019-11-10 21:36 | disposition short-term general hospital (02) ==
LOC: SED 09:43
DX: I82.401 Acute embolism and thrombosis of unspecified deep veins of right lower extremity (principal); I82.402 Acute embolism and thrombosis of unspecified deep veins of left lower extremity; I10 Essential (primary) hypertension; I50.9 Heart failure, unspecified; E78.5 Hyperlipidemia, unspecified; Z79.899 Other long term (current) drug therapy
CPT/HCPCS: 36415; 71045; 80053; 81003; 82150; 82550; 83605; 83690; 83880; 84484; 85025; 85379; 85610; 85730; 87040; 93005; 93971; 96365; 96375; 99285; J7030; J1644

== ENCOUNTER 2020-05-27 00:38 | Emergency (ER) | payer MEDICARE, MEDICAID ==
[~2020-05-27] VITALS: Ht 142.2 cm; Wt 54.4 kg
[2020-05-27 00:47] VITALS: BP_SYST 183
--- NOTE | 2020-05-27 01:05 | NUR ---
PT C/O OF ABDOMINAL PAIN THAT WOKE HER UP FROM SLEEP AT 0030. PT HAS UPPER ABDOMINAL PAIN 08/22. PT HX OF SMALL BOWEL OBSTRUCTION THAT SHE HAD SURGERY FOR IN OCTOBER AND FEBRUARY. PT STATES SHE HAS BEEN NAUSEOUS. PT DENIES VOMITING, CONSTIPATION.
--- NOTE | 2020-05-27 01:10 | NUR ---
ER Dr. KLINE at bedside examining patient.
[2020-05-27] MEDS ORDERED: MORPHINE 2 MG/ML INJ. SYRINGE IVP ONE ×2 (01:30→10:45)
--- NOTE | 2020-05-27 01:40 | NUR ---
# 20 gauge angiocath placed to LAC. Use of asceptic technique. Opsite placed over site. Blood return noted. Flushed with 10 cc of normal saline. No evidence of infiltration noted. Patient tolerated well.
--- NOTE | 2020-05-27 01:50 | NUR ---
Patient transported to radiology via GURNEY, accompanied by NIDA.
--- NOTE | 2020-05-27 02:10 | NUR ---
pt ambulated to restroom with steady gait to give urine sample.
--- NOTE | 2020-05-27 02:15 | NUR ---
pt unable to give urine sample at this time.
[2020-05-27 02:22] LABS: BASOPHILS % (AUTO) 0.4 % (0.0-2.0); EOSINOPHILS # (AUTO) 0.1 K/uL (0.0-0.4); EOSINOPHILS % (AUTO) 1.8 % (0.0-4.0); HEMATOCRIT 40.5 % (36-48); HEMOGLOBIN 13.4 g/dL (12.0-16.0); LYMPHOCYTES # (AUTO) 0.5 K/uL (1.0-5.5); LYMPHOCYTES % (AUTO) 5.9 % (20.5-51.5); MEAN CORPUSCULAR HEMOGLOBIN 29 pg (27-31); MEAN CORPUSCULAR HGB CONC 33 % (32-36); MEAN CORPUSCULAR VOLUME 89 fL (79.0-98.0); MONOCYTES # (AUTO) 0.4 K/uL (0.0-1.0); MONOCYTES % (AUTO) 4.7 % (1.7-9.3); NEUTROPHILS % (AUTO) 87.2 % (40.0-70.0); PLATELET COUNT (AUTO) 213 K/uL (130-430); RED BLOOD CELL COUNT(AUTO) 4.55 MIL/uL (4.2-6.2); RED CELL DISTRIBUTION WIDTH 19.5 % (9.0-15.0)
[2020-05-27 02:53] LABS: ANION GAP 8 (5-15); CALCIUM 9.1 mg/dL (8.4-11.0); CHLORIDE 103 mmol/L (98-107); CREATININE 0.95 mg/dL (0.55-1.30); GLUCOSE 106 mg/dL (70-99); POTASSIUM 3.9 mmol/L (3.5-5.1); SODIUM SERUM 140 mmol/L (136-145); UREA NITROGEN, BLOOD 13 mg/dL (8-21)
[2020-05-27] MEDS ORDERED: fentaNYL CITRATE/PF 100 MCG/2 ML AMP IVP ONE (03:00)
[2020-05-27 03:02] LABS: ALANINE AMINOTRANSFERASE 29 U/L (12-78); ALBUMIN 3.4 g/dL (3.4-4.8); ASPARTATE AMINOTRANSFERASE 16 U/L (10-37); LIPASE 116 U/L (73-393); TOTAL BILIRUBIN 0.4 mg/dL (0.0-1.0)
--- NOTE | 2020-05-27 03:55 | NUR ---
pt ambulated to restroom to urinated for a second time.
--- NOTE | 2020-05-27 04:00 | NUR ---
pts urine was not collected in the hat on the toilet, she missed. will try again to collect urine.
--- NOTE | 2020-05-27 04:12 | NUR ---
US AT BEDSIDE.
--- NOTE | 2020-05-27 04:55 | NUR ---
spoke with orly from case management, she is waiting for bed assignment at transferring facility and will arrange transport once pt has a room available.
--- NOTE | 2020-05-27 05:05 | NUR ---
attempted to get ahold of son of patient to update him on pt status.
--- NOTE | 2020-05-27 05:07 | NUR ---
pt will go to room 232B at [facility].
[2020-05-27 05:23] LABS: BILIRUBIN,URINE NEGATIVE (NEGATIVE); CLARITY/URINE CLEAR (CLEAR); COLOR,URINE YELLOW (YELLOW); GLUCOSE,URINE NEGATIVE (NEGATIVE); KETONES,URINE NEGATIVE (NEGATIVE); LEUKOCYTE ESTERASE ,URINE 3+ (NEGATIVE); NITRITE, URINE NEGATIVE (NEGATIVE); PROTEIN URINE NEGATIVE (NEGATIVE); UROBILINOGEN,URINE 0.2 (0.2-1.0)
[2020-05-27 05:24] LABS: BLOOD, URINE TRACE (NEGATIVE)
[2020-05-27 05:33] LABS: BACTERIA,URINE FEW /HPF (None Seen); WBC,URINE 20-50 /HPF (0-3)
--- NOTE | 2020-05-27 05:40 | NUR ---
Patient's code status is full code paperwork completed and placed in chart.
--- NOTE | 2020-05-27 05:41 | NUR ---
spoke with pt daughter about status of patient per request of pt.
--- NOTE | 2020-05-27 06:33 | NUR ---
patient trying to get some rest. vital signs stable.
--- NOTE | 2020-05-27 07:22 | NUR ---
report give to JIMI Garcia for continuation of care.
--- NOTE | 2020-05-27 07:35 | NUR ---
Received report from Padmini KRAUSE for continuation of care. Patient resting in bed, denies any pain or SOB at this time. No signs or symptoms of acute distress noted. Vital signs stable.
--- NOTE | 2020-05-27 08:05 | NUR ---
Assisted patient to ambulate to bathroom, patient has steady gait. Assited patient back to bed and connected to continuous silvering applicator. No signs or symptoms of acute distress noted.
--- NOTE | 2020-05-27 08:36 | NUR ---
spoke to evans, medical insurance claims processor, called regarding pt tile picker and noc shift case picker put call on will call. will call lifeline to see if call is still is on will call to activate. evans is also checking with [facility] if bed is still assigned to pt. case picker: [phone]
--- NOTE | 2020-05-27 09:30 | NUR ---
Patient resting in bed, symmetrical rise and fall of chest, arousable to voice. No signs or symptoms of acute distress noted. Fall and safety precautions in place.
--- NOTE | 2020-05-27 10:48 | NUR ---
Patient complaining of 6/10 pain. Administered pain medication per MD order.
[2020-05-27] MEDS ORDERED: MORPHINE 2 MG/ML INJ. SYRINGE ONE (10:53)
--- NOTE | 2020-05-27 11:22 | NUR ---
Patient to be transferred to [facility]. Is being transferred due to higher level of care and insurance requirement. Receiving facility has accepting physician and available space. ER physician has signed transfer form. Patient or responsible green party has agreed to transfer and signed form. Patient belongings inventoried and will be sent with patient. Copy of nursing notes, lab reports, EKG, Physicians Orders and X-rays to be sent with patient. Report called to Sandra KRAUSE (director of software development) at receiving facility. [facility] Here at bedside.
[2020-05-27 11:42] VITALS: BP_SYST 155
== END 2020-05-27 11:40 | disposition short-term general hospital (02) ==
LOC: SED 00:38
DX: K56.690 Other partial intestinal obstruction (principal); E78.5 Hyperlipidemia, unspecified; I10 Essential (primary) hypertension; Z79.899 Other long term (current) drug therapy
CPT/HCPCS: 36415; 74176; 76705; 80053; 81000; 83690; 84484; 85025; 87086; 93005; 96374; 96375; 99285; J2270

== ENCOUNTER 2022-06-14 09:36 | Emergency (ER) | payer MEDICAID, MEDICARE, OTHER ==
[~2022-06-14] VITALS: Ht 142.2 cm; Wt 59.0 kg
[2022-06-14 10:00] VITALS: BP_SYST 146
[2022-06-14] MEDS ORDERED: traMADol HCL HCL 50 MG TABLET (ULTRAM) PO ONE (10:15)
[2022-06-14] MEDS ORDERED: TRAM50TA PO (11:11)
[2022-06-14 14:30] VITALS: BP_SYST 136
== END 2022-06-14 17:39 | disposition home or self-care (01) ==
LOC: SED 09:36
DX: S20.211A Contusion of right front wall of thorax, initial encounter (principal); S30.0XXA Contusion of lower back and pelvis, initial encounter; I10 Essential (primary) hypertension; E78.5 Hyperlipidemia, unspecified; Z79.899 Other long term (current) drug therapy; W18.30XA Fall on same level, unspecified, initial encounter; Y93.89 Activity, other specified; Y92.89 Other specified places as the place of occurrence of the external cause; Y99.8 Other external cause status
CPT/HCPCS: 71100; 72100-TC; 99284

== ENCOUNTER 2023-06-23 17:39 | Emergency (ER) | payer MEDICARE, MEDICAID ==
[~2023-06-23] VITALS: Ht 162.6 cm; Wt 59.0 kg
[~2023-06-23 17:39] MED LIST changes: +SIMV-341 PO; -SIMV10TA2 PO; +TRAM50TA PO
[2023-06-23 17:45] VITALS: BP_SYST 141; PULSE 82; RESP 18; TEMP 98.3; O2SAT 98
[2023-06-23 18:42] LABS: BASOPHILS % (AUTO) 0.8 % (0.0-2.0); EOSINOPHILS # (AUTO) 0.1 K/uL (0.0-0.4); HEMOGLOBIN 12.7 g/dL (12.0-16.0); LYMPHOCYTES # (AUTO) 0.5 K/uL (1.0-5.5); LYMPHOCYTES % (AUTO) 9.8 % (20.5-51.5); MEAN CORPUSCULAR HEMOGLOBIN 31 pg (27-31); MEAN CORPUSCULAR HGB CONC 33 % (32-36); MEAN CORPUSCULAR VOLUME 95 fL (79.0-98.0); MONOCYTES # (AUTO) 0.3 K/uL (0.0-1.0); MONOCYTES % (AUTO) 6.2 % (1.7-9.3); NEUTROPHILS # (AUTO) 4.1 K/uL (1.8-7.7); NEUTROPHILS % (AUTO) 81.2 % (40.0-70.0); PLATELET COUNT (AUTO) 143 K/uL (130-430); RED BLOOD CELL COUNT(AUTO) 4.12 MIL/uL (4.2-6.2); RED CELL DISTRIBUTION WIDTH 13.8 % (9.0-15.0); WHITE BLOOD COUNT (AUTO) 5.1 K/uL (4.8-10.8)
[2023-06-23 18:55] LABS: ALANINE AMINOTRANSFERASE 9 U/L (12-78); ALBUMIN 3.3 g/dL (3.4-4.8); ANION GAP 8 (5-15); ASPARTATE AMINOTRANSFERASE 16 U/L (10-37); CALCIUM 8.3 mg/dL (8.4-11.0); CARBON DIOXIDE 26 mmol/L (23-29); CHLORIDE 104 mmol/L (98-107); CREATININE 0.93 mg/dL (0.55-1.30); GLUCOSE 101 mg/dL (74-106); LIPASE 86 U/L (73-393); POTASSIUM 3.6 mmol/L (3.5-5.1); SODIUM SERUM 138 mmol/L (136-145); TOTAL BILIRUBIN 0.3 mg/dL (0.0-1.0); TOTAL PROTEIN, SERUM 6.4 g/dL (6.4-8.3); UREA NITROGEN, BLOOD 22 mg/dL (8-21)
[2023-06-23] MEDS ORDERED: PARO-41 PO (19:25)
[2023-06-23] MEDS ORDERED: QUET50TA PO (19:25)
[2023-06-23] MEDS ORDERED: LORA-259 PO (19:25)
[2023-06-23] MEDS ORDERED: LOSA25TA3 PO (19:25)
[2023-06-23 19:37] LABS: CLARITY/URINE CLEAR (CLEAR); COLOR,URINE YELLOW (YELLOW)
[2023-06-23 19:38] LABS: BACTERIA,URINE FEW /HPF (None Seen); BILIRUBIN,URINE NEGATIVE (NEGATIVE); BLOOD, URINE TRACE (NEGATIVE); GLUCOSE,URINE NEGATIVE (NEGATIVE); KETONES,URINE NEGATIVE (NEGATIVE); LEUKOCYTE ESTERASE ,URINE 2+ (NEGATIVE); NITRITE, URINE NEGATIVE (NEGATIVE); PROTEIN URINE NEGATIVE (NEGATIVE); RBC,URINE 0-3 /HPF (0-3); UROBILINOGEN,URINE 0.2 (0.2-1.0)
[2023-06-23 19:39] LABS: MUCUS,URINE None Seen /LPF (None Seen)
[2023-06-23] MEDS ORDERED: CIPR500T5 PO ×2 (20:01→20:28)
[2023-06-23 20:25] VITALS: BP_SYST 140; PULSE 78; RESP 16; TEMP 98.1; O2SAT 93
== END 2023-06-23 20:25 | disposition home or self-care (01) ==
LOC: SED 17:39
DX: N39.0 Urinary tract infection, site not specified (principal); R10.13 Epigastric pain; I10 Essential (primary) hypertension; E78.5 Hyperlipidemia, unspecified; Z79.899 Other long term (current) drug therapy
CPT/HCPCS: 36415; 76376; 80053; 81000; 83690; 85025; 87086; 99284